=== PATIENT | male | born 1995 | race Two or more races ===

== ENCOUNTER 2018-11-07 09:06 | Outpatient (CLI) | payer OTHER ==
[~2018-11-07 09:06] MED LIST: PULMICORT1 MG/2 ML IH
== END 2018-11-07 09:12 | disposition home or self-care (01) ==
LOC: RAD 501 09:06
DX: M54.5 Low back pain (principal); I10 Essential (primary) hypertension; Z01.810 Encounter for preprocedural cardiovascular examination; E03.8 Other specified hypothyroidism; E78.49 Other hyperlipidemia; E11.51 Type 2 diabetes mellitus with diabetic peripheral angiopathy without gangrene; E55.9 Vitamin D deficiency, unspecified; E66.8 Other obesity; M89.8X8 Other specified disorders of bone, other site; K21.9 Gastro-esophageal reflux disease without esophagitis; M15.8 Other polyosteoarthritis